=== PATIENT | female | born 1985 | race Hispanic/Latino ===

== ENCOUNTER 2020-04-28 01:00 | Inpatient (IN) | payer OTHER ==
[2020-04-28] MEDS ORDERED: NA CHLORIDE 0.9% 1,000 ML ONE ×3 (01:39→04:27)
[2020-04-28 01:44] LABS: Absolute Lymphocytes (CBC) 1.1 K/uL (0.7-4.9); Basophils % 0.4 % (0-1.3); Hematocrit 39.8 % (36.0-45.0); Lymphocytes % 15.2 % (15.3-44.8); MPV 9.7 fL (7.6-11.3); RBC Red Blood Cell Count 4.45 M/uL (3.86-4.86)
[2020-04-28 01:45] LABS: Protime INR 0.95
[2020-04-28 02:01] LABS: ALT/SGPT 34 U/L (12-78); AST/SGOT 20 U/L (15-37); Albumin 3.7 g/dL (3.4-5.0); Alkaline Phosphatase 113 U/L (45-117); Amylase 39 U/L (25-115); BUN Blood Urea Nitrogen 16 mg/dL (7-18); Bicarbonate 26 mmol/L (21-32); Bilirubin Direct 0.2 mg/dL (0-0.2); Bilirubin Total 0.7 mg/dL (0.2-1.0); CKMB Creatine Kinase MB < 1.0 ng/mL (0.3-3.6); Creatine Phosphokinase 84 U/L (26-192); Glucose Level 92 mg/dL (74-106); Lipase 172 U/L (73-393); Potassium 3.3 mmol/L (3.5-5.1); Protein, Total 7.5 g/dL (6.4-8.2); Sodium Level 142 mmol/L (136-145); Troponin (Emerg Dept Use Only) < 0.02 ng/mL (0.0-0.045)
[2020-04-28 02:56] LABS: SARS-COV-2 RT PCR NEGATIVE (NEGATIVE)
[2020-04-28 02:58] LABS: Urine Blood TRACE (NEG); Urine Glucose NEGATIVE (NEG); Urine Protein 2+ (NEG)
[2020-04-28] MEDS ORDERED: CEFTRIAXONE/SWI 1gm 1 GM/10 ML SYR ONE (03:03)
[2020-04-28 03:17] LABS: Urine Bacteria >50 /HPF (<20)
[2020-04-28 03:18] LABS: Urine RBC <5 /HPF (NONE SEEN)
--- NOTE | 2020-04-28 04:49 | ER ---
Nurse's Notes [facility] [place] Name: Mónica Stafford Age: 34 yrs Sex: Female : 1985 Arrival Date: 04/28/2020 Time: 01:02 Bed 5 Private MD: Diagnosis: UTI;Sepsis Presentation: 04/28 01:18 Chief complaint: Patient states: Sudden onset of generalized body aches, back pain, lp1 chills that began at 2130 tonight; Denies fever, loss of taste or smell at home. Coronavirus screen: chills, fever, muscle pain. Ebola Screen: No symptoms or risks identified at this time. Initial Sepsis Screen: Does the patient meet any 2 criteria? Temp <36.0*C (96.8*F)) or > 38.3*C (100.9*F). HR > 90 bpm. Yes Does the patient have a suspected source of infection? Yes:. Risk Assessment: Do you want to hurt yourself or someone else? Patient reports no desire to harm self or others. Onset of symptoms was April 27, 2020 at 21:30. 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 - Social history:: Smoking status: Patient/guardian denies using tobacco. Screenin:30 Abuse screen: Denies threats or abuse. Denies injuries from another. Nutritional lp1 screening: No deficits noted. Tuberculosis screening: No symptoms or risk factors identified. 01:53 Fall Risk IV access (20 points). Mental Status- Oriented to own ability (0 pts). Total rr5 Lugo Fall Scale indicates No Risk (0-24 pts). Assessment: 01:20 General: Appears in no apparent distress. uncomfortable, Behavior is calm, cooperative, rr5 Reports chills for fever for feeling ill for fatigue for. 01:20 Pain: Complains of pain in body. Neuro: Level of Consciousness is awake, alert, obeys rr5 commands, Oriented to person, place, time, situation. Cardiovascular: Capillary refill < 3 seconds Patient's skin is warm and dry. Respiratory: Airway is patent Respiratory effort is even, unlabored, Respiratory pattern is regular, symmetrical. GI: No signs and/or symptoms were reported involving the gastrointestinal system. : No signs and/or symptoms were reported regarding the genitourinary system. EENT: No signs and/or symptoms were reported regarding the EENT system. Derm: Skin is intact, is healthy with good turgor, Skin temperature is warm. Musculoskeletal: Circulation, motion, and sensation intact. Capillary refill < 3 seconds. 02:56 Reassessment: Patient appears in no apparent distress at this time. Patient is alert, rr5 oriented x 3, equal unlabored respirations, skin warm/dry/pink. for CT scan abdomen/ pelvis. spoke to ros sherman [phone] Patient states feeling better. Patient states symptoms have improved. 03:40 Reassessment: Patient appears in no apparent distress at this time. Patient is alert, rr5 oriented x 3, equal unlabored respirations, skin warm/dry/pink. awaiting for CT result. 04:10 Reassessment: Patient appears in no apparent distress at this time. Patient is alert, rr5 oriented x 3, equal unlabored respirations, skin warm/dry/pink. BP 90/45 provider aware with order made and carried out. 05:26 Reassessment: Patient appears in no apparent distress at this time. Patient is alert, rr5 oriented x 3, equal unlabored respirations, skin warm/dry/pink. Patient states feeling better. Patient states symptoms have improved. Vital Signs: 01:18 BP 117 / 64; Pulse 119; Resp 20; Temp 103.1(O); Pulse Ox 100% on R/A; Weight 78.93 kg lp1 (R); Height 5 ft. 5 in. (165.10 cm); 02:56 BP 141 / 85; Pulse 93; Resp 19; Temp 99; Pulse Ox 100% ; rr5 03:44 BP 90 / 54; Pulse 77; Resp 16; Pulse Ox 98% ; rr5 04:10 BP 90 / 45; Pulse 79; Resp 17; Pulse Ox 99% ; rr5 04:40 BP 94 / 59; Pulse 75; Resp 16; Pulse Ox 100% ; rr5 05:26 BP 100 / 64; Pulse 77; Resp 16; Temp 99.3; Pulse Ox 100% ; rr5 01:18 Body Mass Index 28.95 (78.93 kg, 165.10 cm) lp1 ED Course: 01:02 Patient arrived in ED. bp1 01:20 Triage completed. lp1 01:20 Arm band placed on. lp1 01:25 Vu Rasmussen RN is Primary Nurse. rr5 01:25 Initial lab(s) drawn, by me, sent to lab. First set of blood cultures drawn by me. rv 01:30 Patient has correct armband on for positive identification. Placed in gown. Bed in low lp1 position. Call light in reach. library monitor on. Pulse ox on. NIBP on. 01:32 Felix Uribe MD is Attending Physician. mh7 01:34 Inserted saline lock: 20 gauge in right forearm, using aseptic technique. Blood rv collected. 01:49 COVID swab sent to lab. Flu and/or RSV swab sent to lab. rr5 02:41 Urine Microscopic Only Sent. ds4 02:48 Chest Single View XRAY In Process Unspecified. EDMS 02:57 No provider procedures requiring assistance completed. rr5 04:46 Jolanta Gamez MD is Hospitalizing Provider. mh7 05:21 Patient admitted, IV remains in place. intact, No redness/swelling at site. rr5 Administered Medications: 01:34 Drug: NS 0.9% (30 ml/kg) 30 ml/kg Route: IV; Rate: bolus; Site: right forearm; rv 03:45 Follow up: Response: No adverse reaction; IV Status: Completed infusion; IV Intake: rr5 2000ml 02:52 Drug: Rocephin - (cefTRIAXone) 1 grams Route: IVPB; Infused Over: 30 mins; Site: right rr5 forearm; 03:30 Follow up: Response: No adverse reaction; IV Status: Completed infusion; IV Intake: [id number] 04:14 Drug: NS 0.9% 1000 ml Route: IV; Rate: 1 bolus; Site: right forearm; rr5 05:26 Follow up: Response: No adverse reaction; IV Status: Completed infusion; IV Intake: rr5 1000ml Intake: 03:30 IV: 50ml; Total: 50ml. rr5 03:45 IV: 2000ml; Total: 2050ml. rr5 05:26 IV: 1000ml; Total: 3050ml. rr5 Outcome: 04:47 Decision to Hospitalize by Provider. [facility] 05:23 Admitted to Med/surg accompanied by nurse, via wheelchair, room 229, with chart, Report rr5 called to [facility] 05:23 Condition: stable 05:23 Instructed on the need for admit. 05:33 Patient left the ED. rr5 Signatures: Dispatcher [employer] EDMS Opal Bolanos RN RN lp1 Herbert Beth ds4 Michael Fontenot RN RN Vu Almaguer RN RN rr5 Agueda Mcnair Maurice, MD MD [facility]
--- NOTE | 2020-04-28 04:49 | EDPHYS ---
Physician Documentation [facility] Name: Mónica Stafford Age: 34 yrs Sex: Female : 1985 Arrival Date: 04/28/2020 Time: 01:02 Bed 5 Private MD: ED Physician Felix Uribe HPI: 04/28 02:50 This 34 yrs old Female presents to ER via Ambulatory with complaints of Back mh7 Pain, Body Ache, Chills. 02:50 The patient complains of pain in the left flank. The pain does not radiate. Onset: The mh7 symptoms/episode began/occurred last night, at 21:30. Modifying factors: The symptoms are alleviated by nothing. the symptoms are aggravated by nothing. 02:51 Associated signs and symptoms: Pertinent positives: fever, nausea, chills, Pertinent mh7 negatives: diarrhea, dizziness, dysuria, urinary frequency, headache, hematuria, pain radiating to the lower extremities, vomiting. Severity of pain: At its worst the pain was moderate today, in the emergency department the pain has improved moderately. 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 - Social history:: Smoking status: Patient/guardian denies using tobacco. ROS: 02:51 Eyes: Negative for injury, pain, redness, and discharge, ENT: Negative for injury, mh7 pain, and discharge, Neck: Negative for injury, pain, and swelling, Cardiovascular: Negative for chest pain, palpitations, and edema, Respiratory: Negative for shortness of breath, cough, wheezing, and pleuritic chest pain. 02:51 : Negative for injury, bleeding, discharge, and swelling, MS/Extremity: Negative for injury and deformity, Skin: Negative for injury, rash, and discoloration, Neuro: Negative for headache, weakness, numbness, tingling, and seizure, Psych: Negative for depression, anxiety, suicide ideation, homicidal ideation, and hallucinations, Allergy/Immunology: Negative for hives, rash, and allergies, Endocrine: Negative for neck swelling, polydipsia, polyuria, polyphagia, and marked weight changes, Hematologic/Lymphatic: Negative for swollen nodes, abnormal bleeding, and unusual bruising. 02:51 Abdomen/GI: Negative for abdominal pain, vomiting, diarrhea, constipation, hematemesis. Exam: 02:51 Constitutional: This is a well developed, well nourished patient who is awake, alert, mh7 and in no acute distress. Head/Face: Normocephalic, atraumatic. Eyes: Pupils equal round and reactive to light, extra-ocular motions intact. Lids and lashes normal. Conjunctiva and sclera are non-icteric and not injected. Cornea within normal limits. Periorbital areas with no swelling, redness, or edema. Neck: Trachea midline, no thyromegaly or masses palpated, and no cervical lymphadenopathy. Supple, full range of motion without nuchal rigidity, or vertebral point tenderness. No Meningismus. Chest/axilla: Normal chest wall appearance and motion. Nontender with no deformity. No lesions are appreciated. Cardiovascular: Regular rate and rhythm with a normal S1 and S2. No gallops, murmurs, or rubs. Normal PMI, no JVD. No pulse deficits. Respiratory: Lungs have equal breath sounds bilaterally, clear to auscultation and percussion. No rales, rhonchi or wheezes noted. No increased work of breathing, no retractions or nasal flaring. Abdomen/GI: Soft, non-tender, with normal bowel sounds. No distension or tympany. No guarding or rebound. No evidence of tenderness throughout. Back: No spinal tenderness. No costovertebral tenderness. Full range of motion. Skin: Warm, dry with normal turgor. Normal color with no rashes, no lesions, and no evidence of cellulitis. MS/ Extremity: Pulses equal, no cyanosis. Neurovascular intact. Full, normal range of motion. Neuro: Awake and alert, GCS 15, oriented to person, place, time, and situation. Cranial nerves II-XII grossly intact. Motor strength 5/5 in all extremities. Sensory grossly intact. Cerebellar exam normal. Normal gait. Psych: Awake, alert, with orientation to person, place and time. Behavior, mood, and affect are within normal limits. Vital Signs: 01:18 BP 117 / 64; Pulse 119; Resp 20; Temp 103.1(O); Pulse Ox 100% on R/A; Weight 78.93 kg lp1 (R); Height 5 ft. 5 in. (165.10 cm); 02:56 BP 141 / 85; Pulse 93; Resp 19; Temp 99; Pulse Ox 100% ; rr5 03:44 BP 90 / 54; Pulse 77; Resp 16; Pulse Ox 98% ; rr5 04:10 BP 90 / 45; Pulse 79; Resp 17; Pulse Ox 99% ; rr5 04:40 BP 94 / 59; Pulse 75; Resp 16; Pulse Ox 100% ; rr5 05:26 BP 100 / 64; Pulse 77; Resp 16; Temp 99.3; Pulse Ox 100% ; rr5 01:18 Body Mass Index 28.95 (78.93 kg, 165.10 cm) lp1 MDM: 04:44 Differential diagnosis: nephrolithiasis, pyelonephritis, UTI, sepsis. Data reviewed: [facility] vital signs, nurses notes, lab test result(s), CBC, electrolytes, urinalysis, radiologic studies, CT scan, plain films. Data interpreted: Pulse oximetry: on room air is 99 %. Interpretation: normal. Counseling: I had a detailed discussion with the patient and/or guardian regarding: the historical points, exam findings, and any diagnostic results supporting the discharge/admit diagnosis, lab results, radiology results, the need for further work-up and treatment in the hospital. Response to treatment: the patient's symptoms have markedly improved after treatment. 04:47 Patient medically screened. [facility] 04/28 01:26 Order name: Amylase, Serum 04/28 01:26 Order name: Basic Metabolic Panel 04/28 01:26 Order name: Blood Culture Adult (2) 04/28 01:26 Order name: CBC with Diff 04/28 01:26 Order name: Ckmb 04/28 01:26 Order name: CPK 04/28 01:26 Order name: Lactate 04/28 01:26 Order name: LFT's 04/28 01:26 Order name: Lipase 04/28:26 Order name: Procalcitonin 04/28 01:26 Order name: Protime (+inr) 04/28 01:26 Order name: Ptt, Activated 04/28 01:26 Order name: Troponin (emerg Dept Use Only) 04/28 01:26 Order name: Urine Microscopic Only; Complete Time: 04:01 rr04/28 01:45 Order name: COVID-19 04/28 01:45 Order name: Flu 04/28 01:45 Order name: Glucose, Ancillary Testing; Complete Time: 01:48 EDMS 04/28 01:46 Order name: Protime (+INR); Complete Time: 01:48 EDMS 04/28 01:46 Order name: PTT, Activated Partial Thromb; Complete Time: 01:48 EDMS 04/28 01:46 Order name: CBC with Automated Diff; Complete Time: 01:48 EDMS 04/28 01:53 Order name: CORONAVIRUS EDMS 04/28 01:53 Order name: Influenza Screen (A ED04/28 01:57 Order name: Lactate; Complete Time: 02:46 EDMS 04/28 02:01 Order name: Basic Metabolic Panel; Complete Time: 02:46 EDMS 04/28 02:01 Order name: Liver (Hepatic) Function; Complete Time: 02:46 EDMS 04/28 02:01 Order name: Creatine Phosphokinase; Complete Time: 02:46 EDMS 04/28 02:01 Order name: CKMB Creatine Kinase MB; Complete Time: 02:46 EDMS 04/28 02:01 Order name: Troponin (Emerg Dept Use Only); Complete Time: 02:46 EDMS 04/28 02:01 Order name: Amylase; Complete Time: 02:46 EDMS 04/28 02:01 Order name: Lipase; Complete Time: 02:46 EDMS 04/28 01:26 Order name: Chest Single View XRAY 04/28 01:26 Order name: Accucheck; Complete Time: 01:34 04/28 01:26 Order name: Cardiac monitoring; Complete Time: 01:30 04/28 01:26 Order name: EKG - Nurse/Tech; Complete Time: 01:31 04/28 01:26 Order name: IV Saline Lock - Large Bore; Complete Time: 01:31 04/28 01:26 Order name: Labs collected and sent; Complete Time: 01: rr5 04/28 01:26 Order name: O2 Per Protocol; Complete Time: : rr5 04/28 01:26 Order name: O2 Sat Monitoring; Complete Time: : rr5 04/28 01:26 Order name: Urine Dipstick-Ancillary (obtain specimen); Complete Time: 02:41 rr5 04/28 02:12 Order name: Procalcitonin; Complete Time: 02:46 EDMS 04/28 02:43 Order name: Urine Dipstick--Ancillary (enter results); Complete Time: 04:01 ds4 04/28 02:44 Order name: Urine Culture 4 04/28 02:47 Order name: Urine --Ancillary (enter results); Complete Time: 04: 4 04/28 02:48 Order name: CT Abd/Pelvis - IV Contrast Only [facility] 04/28 02:57 Order name: COVID-19/FLU A+B; Complete Time: 04:01 EDMS Administered Medications: 01:34 Drug: NS 0.9% (30 ml/kg) 30 ml/kg Route: IV; Rate: bolus; Site: right forearm; rv 03:45 Follow up: Response: No adverse reaction; IV Status: Completed infusion; IV Intake: rr5 2000ml 02:52 Drug: Rocephin - (cefTRIAXone) 1 grams Route: IVPB; Infused Over: 30 mins; Site: right rr5 forearm; 03:30 Follow up: Response: No adverse reaction; IV Status: Completed infusion; IV Intake: [id number] 04:14 Drug: NS 0.9% 1000 ml Route: IV; Rate: 1 bolus; Site: right forearm; rr5 05:26 Follow up: Response: No adverse reaction; IV Status: Completed infusion; IV Intake: rr5 1000ml Disposition: 04/28/20 04:47 Hospitalization ordered by Jolanta Gamez for Inpatient Admission. Preliminary diagnosis are UTI, Sepsis. - Bed requested for Telemetry/MedSurg (Inpatient). - Status is Inpatient Admission. rr5 - Condition is Stable. - Problem is new. - Symptoms have improved. Signatures: Dispatcher [employer] EDMS Opal Bolanos, RN RN lp1 Luke Bird FNP-C HAND ALTERATIONS SEAMSTRESS-Cla1 Emelyn Flores RN RN Michael Fontenot, RN RN Vu Rasmussen RN RN rr5 Felix Uribe MD MD 7 Corrections: (The following items were deleted from the chart) 05:13 04:47 Hospitalization Ordered by Jolanta Gamez MD for Inpatient Admission. Preliminary cg diagnosis is UTI; Sepsis. Bed requested for Telemetry/MedSurg (Inpatient). Status is Inpatient Admission. Condition is Stable. Problem is new. Symptoms have improved. [facility] 05:19 05:13 04/28/2020 04:47 Hospitalization Ordered by Jolanta Gamez MD for Inpatient cg Admission. Preliminary diagnosis is UTI; Sepsis. Bed requested for Telemetry/MedSurg (Inpatient). Status is Inpatient Admission. Condition is Stable. Problem is new. Symptoms have improved. 05:33 05:19 04/28/2020 04:47 Hospitalization Ordered by Jolanta Gamez MD for Inpatient rr5 Admission. Preliminary diagnosis is UTI; Sepsis. Bed requested for Telemetry/MedSurg (Inpatient). Status is Inpatient Admission. Condition is Stable. Problem is new. Symptoms have improved.
--- NOTE | 2020-04-28 04:53 | P.HP ---
Certification for Inpatient Patient admitted to: Observation With expected LOS: <2 Midnights Patient will require the following post-hospital care: None Practitioner: I am a practitioner with admitting privileges, knowledge of patient current condition, hospital course, and medical plan of care. Services: Services provided to patient in accordance with Admission requirements found in Title 42 Section 412.3 of the Code of Federal Regulations <Luke Bird - Last Filed: 04/28/20 04:50> Patient History Date of Service: 04/28/20 Primary Care Provider: ENRICO lyles Reason for admission: UTI, hypotension History of Present Illness: 34-year-old female with history of diabetes mellitus type 2, hype rtension presents emergency department for urinary frequency, fever, chills. Patient reports that she has had urinary frequency for the past 1 week but last night she spiked high fever to 103 and was feeling unwell. Patient was evaluated in the emergency department white blood cell count 7.3 with some left shift testing 3.3 pro calcitonin 0.5 to urine significant for urine tract infection. Lactate negative. COVID negative. Patient without CVA tenderness, CT with contrast negative for any acute findings. Patient's blood pressure was low during her emergency department stay, remained low even after 30 cc/kg fluid bolus with systolic of around 90. Patient reports her baseline blood pressure is usually around 115-120. ED provider wishes to admit patient under observation for hydration, antibiotics. Patient does not appear septic at this time. 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 - Family History Father -: Diabetes - Social History Smoking Status: Former smoker Alcohol use: Yes CD- Drugs: No Caffeine use: Yes Place of Residence: Home <Luke Bird - Last Filed: 04/28/20 04:50> Date of Service: 04/28/20 <Jolanta Gamez - Last Filed: 05/06/20 23:25> Allergies NSAIDS (Non-Steroidal Anti-Inflamma Adverse Reaction (Verified 04/28/20 06:25) Nausea/Vomiting Home Medications: RX: Bupropion HCl [Wellbutrin] 150 mg PO BID 04/28/20 RX: Losartan Potassium 1 tab PO DAILY 04/28/20 RX: Metformin HCl [Metformin HCl ER] 1 tab PO BID 04/28/20 RX: Hydrocortisone [Cortef] 20 mg PO DAILY #20 tablet 04/30/20 levoFLOXacin [Levaquin] 500 mg PO DAILY #7 tab 04/30/20 Review of Systems 10-point ROS is otherwise unremarkable General: Fever, Chills, Weakness, Malaise Genitourinary: Frequency <Luke Bird - Last Filed: 04/28/20 04:50> Physical Examination - Physical Exam General: Alert, In no apparent distress HEENT: Atraumatic, PERRLA, Mucous membr. moist/pink, Other (Mucous membranes dry) Neck: Supple, 2+ carotid pulse no bruit, No LAD Respiratory: Clear to auscultation bilaterally, Normal air movement Cardiovascular: Regular rate/rhythm, Normal S1 S2 Capillary refill: <2 Seconds Gastrointestinal: Normal bowel sounds, No tenderness Musculoskeletal: No tenderness Integumentary: No rashes Neurological: Normal speech, Normal strength at 5/5 x4 extr, Normal tone, Normal affect - Studies Laboratory Data (last 24 hrs) 04/28/20 01:25: PT 11.2, INR 0.95, APTT 28.0 04/28/20 01:25: WBC 7.3, Hgb 13.5, Hct 39.8, Plt Count 172 04/28/20 01:25: Sodium 142, Potassium 3.3 L, BUN 16, Creatinine 0.78, Glucose 92, Total Bilirubin 0.7, AST 20, ALT 34, Alkaline Phosphatase 113, Amylase 39, Lipase 172 <Luke Bird - Last Filed: 04/28/20 04:50> Assessment and Plan - Plan Assessment UTI, fever Hypotension likely secondary to dehydration Diabetes mellitus type 2-controlled Plan UTI, fever: Blood in urine cultures obtained, continue IV Rocephin at this time. Pro calcitonin, lactate both negative, patient appears nontoxic at this time. Continue with IV fluids. DVT prophylaxis Lovenox 40 mg subcutaneous once daily. Hypotension likely secondary to dehydration: Patient given 30 cc/kg fluid bolus in the emergency department, continue maintenance fluids. Diabetes mellitus type 2-controlled: Last A1c less than 5, will need to hold metformin as she had contrast CT. A.c. HS Accu-Cheks, sliding scale insulin therapy. Discharge Plan: Home Plan to discharge in: 24 Hours - Advance Directives Does patient have a Living Will: No Does patient have a Durable POA for Healthcare: No - Code Status/Comfort Care Code Status Assessed: Yes (Full code) Critical Care: No Time Spent Managing Pts Care (In Minutes): 55 <Luke Bird - Last Filed: 04/28/20 04:50> - Problems (Diagnosis) (1) Urinary tract infection Status: Acute (2) Septic shock Status: Acute (3) Hypotension Status: Acute <Jolanta Gamez - Last Filed: 05/06/20 23:25> Date of Service: 04/28/20 Patient was hypotensive. Patient was given IV fluids and IV antibiotics. Concern for adrenal insufficiency. Will check Cortisol level. Continue with current plan of care. Continue IV antibiotics awaiting culture results. Continue with IV fluids and will start IV steroids after checking cortisol level. <Jolanta Gamez - Last Filed: 05/06/20 23:25>
[2020-04-28] MEDS ORDERED: ONDANSETRON 4 MG/2 ML VIAL IV PRN (05:47)
[2020-04-28] MEDS: NA CHLORIDE 0.9% 1,000 ML IV SCH ×3 (06:15→22:09)
[2020-04-28 06:40] VITALS: BMI 26.0
[2020-04-28] MEDS ORDERED: INFLUENZA VACCINE (for 3y+) 0.5 ML DOSE IMVAC ONE (09:00)
[2020-04-28] MEDS ORDERED: POTASSIUM 25 MEQ EFFERV TAB PO ONE (09:00)
[2020-04-28] MEDS: ACETAMINOPHEN 500 MG TAB PO PRN (09:11)
[2020-04-28] MEDS: ENOXAPARIN 40 MG/0.4 ML SQ SCH (09:12)
--- NOTE | 2020-04-28 15:46 | RAD REPORT ---
EXAM DESCRIPTION: CT ABDOMEN AND PELVIS WITH CONTRAST CLINICAL HISTORY: Fever;Flank pain COMPARISON: 04/17/2013 TECHNIQUE: CT of the abdomen and pelvis performed following IV administration of iodinated contras t.. FINDINGS: Lung Bases: The visualized lung bases are clear. Bones: Mild degenerative endplate spondylosis. Abdomen: Liver: Hepatomegaly. No intrahepatic biliary dilatation. Gallbladder: Calcified gallstones. Spleen, Pancreas, and Adrenal Glands: Splenomegaly. Pancreas and adrenal glands are unremarkable. Kidneys: No hydronephrosis or obstructing calculus. Bilateral nonobstructing nephrolithiasis. Vasculature: The aorta and IVC have normal caliber and position. Retroaortic left renal vein. The por jennifer vein is patent. The proximal visceral and renal arteries are patent. Stomach: Postoperative change of the stomach. Other: No free intraperitoneal air. No free fluid or lymphadenopathy. Pelvis: Bladder: Mild wall thickening of the urinary bladder. Bowel: No dilated loops of large or small bowel. Appendix: Normal appendix. Pelvis: IUD in the uterus. IMPRESSION: 1. No obstructing ureteral calculus identified. 2. Wall thickening of the urinary bladder. This could be seen with cystitis. 3. Cholelithiasis without other CT evidence of acute cholecystitis. 4. Hepatomegaly and splenomegaly. 5. Nonobstructing bilateral nephrolithiasis. This exam was performed according to our departmental dose-optimization program, which includes autom ated exposure control, adjustment of the mA and/or kV according to patient size and/or use of iterati ve reconstruction technique. Electronically signed by: Damien Loera 04/28/2020 3:42 AM MOTION PICTURE NARRATOR Due to temporary technical issues with the PACS/Fluency reporting system, reports are being signed by the in house radiologists without review as a courtesy to insure prompt reporting. The interpreting radiologist is fully responsible for the content of the report.
--- NOTE | 2020-04-28 15:48 | RAD REPORT ---
EXAM DESCRIPTION: Chest Single View CLINICAL HISTORY: COUGH COMPARISON: None. FINDINGS: Single frontal radiograph view of the chest. Cardiomediastinal silhouette: Normal size and contour. Leads overlie the chest. Lungs: No consolidation, pneumothorax, or pleural effusion. Bones: No acute osseous abnormality. Upper abdomen: No abnormality identified. IMPRESSION: 1. No acute pulmonary process identified. Electronically signed by: Damien Loera 04/28/2020 3:50 AM HOLISTIC SPECIALIST Due to temporary technical issues with the PACS/Fluency reporting system, reports are being signed by the in house radiologists without review as a courtesy to insure prompt reporting. The interpreting radiologist is fully responsible for the content of the report.
[2020-04-28] MEDS ORDERED: POTASSIUM CL SA 10 MEQ TAB PO ONE (21:12)
[2020-04-28] MEDS: MELATONIN 3 MG TABLET PO PRN (22:34)
[2020-04-29] MEDS: CEFTRIAXONE/SWI 1gm 1 GM/10 ML SYR IV SCH (01:35)
[2020-04-29] MEDS ORDERED: CEFTRIAXONE 1 GM/NS 50 ML 1 GM/50 ML BAG IV SCH (02:00)
[2020-04-29 05:55] LABS: Absolute Lymphocytes (CBC) 1.5 K/uL (0.7-4.9); Basophils % 0.6 % (0-1.3); Hematocrit 30.6 % (36.0-45.0); Lymphocytes % 29.5 % (15.3-44.8); MPV 10.1 fL (7.6-11.3); RBC Red Blood Cell Count 3.38 M/uL (3.86-4.86)
[2020-04-29 05:56] LABS: BUN Blood Urea Nitrogen 11 mg/dL (7-18); Bicarbonate 24 mmol/L (21-32); Glucose Level 84 mg/dL (74-106); Magnesium 2.1 mg/dL (1.8-2.4); Potassium 3.9 mmol/L (3.5-5.1); Sodium Level 144 mmol/L (136-145)
[2020-04-29 06:39] LABS: Platelet Estimate DECR; White Blood Cell Scan OK (OK)
[2020-04-29 06:40] LABS: Blood Morphology Comment NOT SEEN (NOT SEEN)
[2020-04-29] MEDS: NA CHLORIDE 0.9% 1,000 ML IV SCH ×3 (06:41→22:21)
[2020-04-29 06:42] LABS: Platelets, Giant RARE
[2020-04-29] MEDS ORDERED: POTASSIUM CL SA 10 MEQ TAB PO ONE (09:00)
[2020-04-29] MEDS: ENOXAPARIN 40 MG/0.4 ML SQ SCH (09:16)
[2020-04-29] MEDS ORDERED: POLYETHYL GLY 3350 17 GM/DOSE PO PRN (14:36)
--- NOTE | 2020-04-29 15:28 | P.PN ---
Subjective Date of Service: 04/29/20 Patient is still a little lightheaded whenever she gets out of bed. It appears she had a urinary tract infection with septic shock. Her blood pressure was 70s over 40s on arrival. With aggressive IV hydration she has had improvement. Urine cultures are showing gram-negative rods from UA collection. She has blood cultures pending. At this time will continue with aggressive IV hydration. I will also check cortisol level to rule out adrenal insufficiency Physical Examination - Vital Signs Temperature: 97.9 F Blood Pressure: 124/71 Pulse: 67 Respirations: 16 Pulse Ox (%): 99 - Physical Exam General: Alert, In no apparent distress, Oriented x3 Respiratory: Clear to auscultation bilaterally, Normal air movement Cardiovascular: Regular rate/rhythm, Normal S1 S2 Gastrointestinal: Normal bowel sounds, Soft and benign, Non-distended, No tenderness Musculoskeletal: No clubbing, No swelling Neurological: Normal gait, Normal strength at 5/5 x4 extr, Normal tone, Sensatio n intact, Cranial nerves 3-12 intact - Studies Medications List Reviewed: Yes Assessment & Plan - Problems (Diagnosis) (1) Urinary tract infection Status: Acute (2) Septic shock Status: Acute (3) Hypotension Status: Acute - Plan Plan: 1. Aggressive IV hydration 2. Check cortisol level 3. Repeat procalcitonin level 4. IV antibiotic therapy 5. Await urine micro and blood cultures 6. Monitor hemodynamics closely 7. GI and DVT prophylaxis Discharge Plan: Home Plan to discharge in: 24 Hours - Advance Directives Does patient have a Living Will: No Does patient have a Durable POA for Healthcare: No - Code Status/Comfort Care Code Status: Full Code Critical Care: No Time Spent Managing PTS Care (In Minutes): 35
--- NOTE | 2020-04-29 15:28 | P.PN ---
Subjective Date of Service: 04/28/20 Patient is still a little lightheaded whenever she gets out of bed. It appears she had a urinary tract infection with septic shock. Her blood pressure was 70s over 40s on arrival. With aggressive IV hydration she has had improvement. Urine cultures are showing gram-negative rods from UA collection. She has blood cultures pending. At this time will continue with aggressive IV hydration. I will also check cortisol level to rule out adrenal insufficiency Review of Systems 10-point ROS is otherwise unremarkable Physical Examination - Vital Signs Temperature: 97.9 F Blood Pressure: 124/71 Pulse: 67 Respirations: 16 Pulse Ox (%): 99 - Physical Exam General: Alert, In no apparent distress, Oriented x3 HEENT: Atraumatic, PERRLA, EOMI Respiratory: Clear to auscultation bilaterally, Normal air movement Cardiovascular: Other (Tachycardic), Systolic murmur Gastrointestinal: Normal bowel sounds, Soft and benign, Non-distended, Tenderness (Flank tenderness) Musculoskeletal: No clubbing, No swelling, No tenderness Neurological: Normal strength at 5/5 x4 extr, Normal tone, Sensation intact, Cranial nerves 3-12 intact - Studies Medications List Reviewed: Yes Assessment & Plan - Problems (Diagnosis) (1) Urinary tract infection Current Visit: Yes Status: Acute (2) Septic shock Current Visit: Yes Status: Acute (3) Hypotension Current Visit: Yes Status: Acute - Plan Plan: 1. Aggressive IV hydration 2. Check cortisol level 3. Repeat procalcitonin level 4. IV antibiotic therapy 5. Await urine micro and blood cultures 6. Monitor hemodynamics closely 7. GI and DVT prophylaxis Discharge Plan: Home Plan to discharge in: Greater than 2 days - Advance Directives Does patient have a Living Will: No Does patient have a Durable POA for Healthcare: No - Code Status/Comfort Care Code Status Assessed: Yes Code Status: Full Code Critical Care: No Time Spent Managing PTS Care (In Minutes): 35
[2020-04-29] MEDS: ACETAMINOPHEN 500 MG TAB PO PRN (18:00)
[2020-04-29] MEDS: MELATONIN 3 MG TABLET PO PRN (22:22)
[2020-04-30] MEDS: CEFTRIAXONE/SWI 1gm 1 GM/10 ML SYR IV SCH (01:57)
[2020-04-30 06:03] LABS: Absolute Lymphocytes (CBC) 1.5 K/uL (0.7-4.9); Basophils % 0.5 % (0-1.3); Hematocrit 30.7 % (36.0-45.0); Lymphocytes % 31.9 % (15.3-44.8); RBC Red Blood Cell Count 3.43 M/uL (3.86-4.86)
[2020-04-30 06:15] LABS: BUN Blood Urea Nitrogen 6 mg/dL (7-18); Bicarbonate 26 mmol/L (21-32); Glucose Level 85 mg/dL (74-106); Potassium 3.7 mmol/L (3.5-5.1); Sodium Level 144 mmol/L (136-145)
[2020-04-30] MEDS: NA CHLORIDE 0.9% 1,000 ML IV SCH (06:19)
[2020-04-30] MEDS ORDERED: POTASSIUM CL SA 10 MEQ TAB PO ONE (08:00)
[2020-04-30] MEDS ORDERED: HYDROCORTISONE SUC 100 MG INJ IV ONE (08:22)
[2020-04-30] MEDS ORDERED: Levofloxacin500mg IV 500 MG/100 ML BAG IV SCH (09:00)
[2020-04-30] MEDS: ENOXAPARIN 40 MG/0.4 ML SQ SCH (09:00)
[2020-04-30 09:46] VITALS: O2SAT 98
--- NOTE | 2020-04-30 10:50 | P.DS ---
Discharge Date: 04/30/20 Primary Care Provider: ENRICO lyles Disposition: ROUTINE DISCHARGE Discharge Condition: GOOD Reason for Admission: UTI, hypotension - Problems (1) Urinary tract infection Status: Acute (2) Septic shock Status: Acute (3) Hypotension Status: Acute Brief History of Present Illness: 34-year-old female with history of diabetes mellitus type 2, hypertension presents emergency department for urinary frequency, fever, chills. Patient reports that she has had urinary frequency for the past 1 week but last night she spiked high fever to 103 and was feeling unwell. Patient was evaluated in the emergency department white blood cell count 7.3 with some left shift testing 3.3 pro calcitonin 0.5 to urine significant for urine tract infection. Lactate negative. COVID negative. Patient without CVA tenderness, CT with contrast negative for any acute findings. Patient's blood pressure was low during her emergency department stay, remained low even after 30 cc/kg fluid bolus with systolic of around 90. Patient reports her baseline blood pressure is usually around 115-120. ED provider wishes to admit patient under observation for hydration, antibiotics. Patient does not appear septic at this time. Hospital Course: Patient was also found have low cortisol level during hospital stay. Patient was given IV antibiotics & patient's clinical symptoms are much better. At this time, patient is doing much better. Patient is stable for discharge and will need to follow up with an club waiter/waitress. Vital Signs/Physical Exam: Temp Pulse Resp BP Pulse Ox 97.9 F 71 15 115/69 98 04/30/20 08:00 04/30/20 08:00 04/30/20 08:00 04/30/20 08:00 04/30/20 08:00 General: Alert, In no apparent distress, Oriented x3 Laboratory Data at Discharge: WBC 4.80 K/uL (4.3-10.9) 04/30/20 05:28 Hgb 10.4 g/dL (12.0-15.0) L 04/30/20 05:28 Hct 30.7 % (36.0-45.0) L 04/30/20 05:28 Plt Count 147 K/uL (152-406) L 04/30/20 05:28 PT 11.2 SECONDS (9.5-12.5) 04/28/20 01:25 INR 0.95 04/28/20 01:25 APTT 28.0 SECONDS (24.3-36.9) 04/28/20 01:25 Sodium 144 mmol/L (136-145) 04/30/20 05:28 Potassium 3.7 mmol/L (3.5-5.1) 04/30/20 05:28 BUN 6 mg/dL (7-18) L 04/30/20 05:28 Creatinine 0.48 mg/dL (0.55-1.3) L 04/30/20 05:28 Glucose 85 mg/dL (74-106) 04/30/20 05:28 Magnesium 2.1 mg/dL (1.8-2.4) 04/29/20 05:30 Total Bilirubin 0.7 mg/dL (0.2-1.0) 04/28/20 01:25 AST 20 U/L (15-37) 04/28/20 01:25 ALT 34 U/L (12-78) 04/28/20 01:25 Alkaline Phosphatase 113 U/L (45-117) 04/28/20 01:25 Amylase 39 U/L (25-115) 04/28/20 01:25 Lipase 172 U/L (73-393) 04/28/20 01:25 Home Medications: RX: Bupropion HCl [Wellbutrin] 150 mg PO BID 04/28/20 RX: Losartan Potassium 1 tab PO DAILY 04/28/20 RX: Metformin HCl [Metformin HCl ER] 1 tab PO BID 04/28/20 RX: Hydrocortisone [Cortef] 20 mg PO DAILY #20 tablet 04/30/20 levoFLOXacin [Levaquin] 500 mg PO DAILY #7 tab 04/30/20 New Medications: RX: Hydrocortisone [Cortef] 20 mg PO DAILY #20 tablet levoFLOXacin [Levaquin] 500 mg PO DAILY #7 tab Patient Discharge Instructions: OK TO DC IV AND DC HOME. FOLLOW-UP WITH PRIMARY CARE PROVIDER IN 1-2 WEEKS. FOLLOW-UP WITH Languages And Literature Instructor IN 1-2 WEEKS. RETURN TO THE ER IF symptoms worsen. CALL or TEXT DR. VELA AT [phone] IF ANY QUESTIONS REGARDING HOSPITAL STAY. PLEASE CALL THE FLOOR AT [phone] IF ANY MEDICATION OR NURSING QUESTIONS. Diet: Regular Activity: Fall precautions Followup: NONE,NONE [Primary Care Provider] - Time spent managing pt's care (in minutes): 35
[2020-05-06 23:23] VITALS: BP 124/71; TEMP 97.9
== END 2020-04-30 12:52 | disposition home or self-care (01) | DRG 871 ==
LOC: ER 01:00 → ERHOLD 04:53 → 2ND 05:24 → OBSVTOIN 11:25
PROVIDERS: ADMIT Hospitalist; ATTEND Hospitalist
DX: A41.9 Sepsis, unspecified organism (principal); R65.21 Severe sepsis with septic shock; N39.0 Urinary tract infection, site not specified; I10 Essential (primary) hypertension; E11.9 Type 2 diabetes mellitus without complications; E86.0 Dehydration; Z79.84 Long term (current) use of oral hypoglycemic drugs; Z98.84 Bariatric surgery status; Z87.891 Personal history of nicotine dependence; Z79.899 Other long term (current) drug therapy; Z20.822 Contact with and (suspected) exposure to COVID-19
CPT/HCPCS: 0240U; 36415; 71045; 74177; 80048; 80076; 81003; 81015; 81025; 82150; 82533; 82550; 82553; 82947; 83605; 83690; 83735; 84132; 84145; 84484; 85025; 85610; 85730; 87040; 87077; 87086; 87088; 87186; 93005; 96361; 96365; 99285; G0378; J0696; J1650; J1720; J7030; Q9967